=== PATIENT | male | born 1955 | race African-American/Black ===

== ENCOUNTER 2016-08-23 06:06 | Day surgery (SDC) | payer BC ==
[2016-08-20 10:46] LABS: HEMATOCRIT 34.4 % (40.0-51.0); HEMOGLOBIN 11.6 g/dL (13.6-17.8)
[2016-08-20 10:58] LABS: BUN (BLOOD UREA NITROGEN) 11 MG/DL (6-23); CALCIUM, SERUM 8.8 MG/DL (8.5-10.4); CHLORIDE, SERUM 105 MMOL/L (96-112); CO2 (CARBON DIOXIDE) 28 MMOL/L (24-34); CREATININE 0.86 MG/DL (0.70-1.30); GFR AFRICAN AMERICAN 110 ML/MIN (>=60); GFR NON AFRICAN AMERICAN 95 ML/MIN (>=60); GLUCOSE, SERUM 129 MG/DL (60-99); POTASSIUM, SERUM 3.6 MMOL/L (3.5-5.3); SODIUM, SERUM 139 MMOL/L (135-148)
--- NOTE | ~2016-08-23 | OP ---
Record Of Operation [place] [id number] [facility] [place]. [address] NAME: LISSET RUIZ : 57 STATUS : [facility] [place] PAT#: [id number] AGE: 60 ADM/REG DATE : 08/23/16 MR#: [id number] REPORT SERV DATE: 08/23/16 DICTATED BY: ARLEEN ARREOLA DATE: 08/23/16 REPORT STATUS : Draft TRANSCRIBED BY: [email or web address] DATE: 08/23/16 DATE OF PROCEDURE: 08/23/2016 PREOPERATIVE DIAGNOSES: 1. Mild obstructive sleep apnea syndrome. 2. Severe tonsillar hypertrophy. 3. Uvular redundancy. 4. Bilateral inferior turbinate hypertrophy. 5. Chronic nasal obstruction. POSTOPERATIVE DIAGNOSES: 1. Mild obstructive sleep apnea syndrome. 2. Severe tonsillar hypertrophy. 3. Uvular redundancy. 4. Bilateral inferior turbinate hypertrophy. 5. Chronic nasal obstruction. PROCEDURES: 1. Uvulopalatopharyngoplasty. 2. Tonsillectomy. 3. Bilateral inferior turbinoplasty. ANESTHESIA: General. COMPLICATIONS: None. COUNTS: All counts were correct following the procedure. ESTIMATED BLOOD LOSS: 15 mL. PREOPERATIVE INFORMED CONSENT: We discussed the risks and benefits of the surgery to include, but limited to bleeding, infection, possible persistent nasal obstruction despite surgery, possible uvulopalatal incompetence, possible postoperative taste distortion, possible persistent obstructive sleep apnea syndrome requiring for the CPAP versus more advanced sleep surgery. He understands the risk and benefits of the surgery, and consent is on the chart. DESCRIPTION OF PROCEDURE: The patient was brought to the operative suite and placed on the operating table in the supine position. General endotracheal anesthesia was initiated without incident using the laser endotracheal tube. The patient's head and neck was cleaned, prepped and draped in the usual sterile fashion. Following this, moistened eye pads were placed on the patient's eyes. Attention was then taken to the oral cavity. A Zak-Lucas retractor was carefully inserted in the oral cavity and used to retract the tongue anteriorly and inferiorly in order to visualize the oropharynx. The soft palate, uvula, and anterior tonsillar pillars were Record Of Operation [place] [address] [place]. [address] NAME: LISSET RUIZ : 57 STATUS : REG [facility]#: [id number] AGE: 60 ADM/REG DATE : 08/23/16 MR#: [id number] REPORT SERV DATE: 08/23/16 DICTATED BY: ARLEEN ARREOLA DATE: 08/23/16 REPORT STATUS : Draft TRANSCRIBED BY: LUÍS DATE: 08/23/16 injected with 1% Lidocaine with 1:100,000 epinephrine for hemostasis. Approximately 6.0 mL was used. Following this a # 12-blade scalpel was used to make an incision down both anterior tonsillar pillars then across the palate to the level of the base of the uvula. The right superior pole of the tonsil was grasped using the tonsillar tenaculum and retracted medially. Using electrocautery, the tonsil was dissected off the underlying pharyngeal musculature down to the inferior pole where it was transected and sent for permanent pathology. There was minimal bleeding. A similar procedure was then carried out on the left tonsil as on the right. Again, there was minimal bleeding. The specimens were sent for permanent pathology. Suction cautery was then obtained. Using a Herd dissector, meticulous hemostasis was achieved in both tonsillar fossae. Then curved Metzenbaum scissors were used to transect the uvula at its base preserving the posterior mucosa. The mucosal flaps were advanced and closed using interrupted 3-0 Vicryl sutures. The oral cavity was irrigated with sterile saline and suctioned until clear. Attention was then taken to the nose and both sides of the septum, as well as the inferior turbinates were injected with 1% Lidocaine with 1:100,000 epinephrine for hemostasis. Approximately 12.0 mL was used. Following this, a #15-blade scalpel was used to perform a left hemitransfixion incision down to the underlying septal cartilage. The mucoperichondrial flap was raised along the left side of the septum using a [place] and Cynthia elevators. The mucoperiosteum was raised off of the maxillary crest using a Cox elevator. A thin strip of cartilaginous septum along the maxillary crest was removed using the Cynthia elevator and the bony cartilaginous junction was using the Cynthia elevator. The mucoperiosteum was raised on both sides of the bony nasal septum. The deviated bony nasal septum was taken down using open Surya-Trell forceps and Mateo forceps. The deviated maxillary crest was also removed using Mateo forceps. This allowed the cartilaginous septum to swing back into the midline. The left hemitransfixion incision was then closed using interrupted 4-0 Chromic sutures and attention was then taken to the turbinates. Both inferior turbinates underwent submucous resection using the Xomed turbinates shaver in a systematic fashion. Both inferior turbinates were infractured and both the medial and lateral surfaces were cauterized using the harmonic scalpel. Both inferior turbinates were outfractured. Breathe-Easy septal splints were placed on both sides of the nasal septum and sutured in the midline using 2-0 Nylon suture. Following this, a bite guard was placed on the upper teeth and a laser Dedo laryngoscope was carefully inserted in the oral cavity and advanced down the midline tongue down to the vallecula region. The patient was then suspended from the León stand. Moistened towels were placed on the patient's face. The microscope was brought into the field and using the CO2 laser attachment with the micromanipulator attachment set at 7 villalba, 200-millijoules, an inverted V-shaped area of the lingual tonsil tissue and base of tongue were systematically vaporized, enlarging the base of tongue airway. Once adequate tissue had been removed, any bleeding sites were cauterized using laryngeal suction cautery. The patient was then taken out of suspension and the Dedo laryngoscope was removed. The patient was awaken from anesthesia and taken to the recovery room in stable condition. Record Of Operation [address] [address] NAME: LISSET RUIZ : 57 STATUS : [facility] [place] PAT#: [id number] AGE: 60 ADM/REG DATE : 08/23/16 MR#: [id number] REPORT SERV DATE: 08/23/16 DICTATED BY: ARLEEN ARREOLA DATE: 08/23/16 REPORT STATUS : Draft TRANSCRIBED BY: LUÍS DATE: 08/23/16 KATHERINE/LUÍS Arleen Arreola M.D. / [id number] CC: Johnathan Church MD
[~2016-08-23 06:06] MED LIST: 8 HOUR650 MG PO; APIDRA SC; ASAB PO; GLUCPH PO; HALF81 PO; LACT30UDL PO; LEVAQUIN750 MG PO; LEVEMFLXPN SC; LEVEMIR SC; LEVITRA20 MG PO; LIPITOR40 PO; LORTAB10 PO; MAGOX4 PO; NORCO1 TAB PO; NOVOPEN SC; P20 PO; PRILO PO; PRIN20 PO; PROAIR HFA INH; SINGULAIR1 PO; SMZ/TMP DS; SYMBICORT 160/41 INH INH; THERAFLU CL1 PO; ZANTAC300 MG PO; ZITH250 PO; ZOCOR40 PO
== END 2016-08-23 23:59 | disposition home or self-care (01) ==
LOC: MSC 06:06
PROVIDERS: Otolaryngology
PROC: 09BL7ZZ Excision of Nasal Turbinate, Via Natural or Artificial Opening (ICD-10-PCS; 2016-08-23)
PROC: 0C5PXZZ Destruction of Tonsils, External Approach (ICD-10-PCS; principal; 2016-08-23 07:30)
PROC: 0C5 Mouth and Throat, Destruction (ICD-10-PCS; 2016-08-23 07:30)
PROC: 0C5PXZZ Destruction of Tonsils, External Approach (ICD-10-PCS; 2016-08-23 07:30)
DX: J35.1 Hypertrophy of tonsils (principal); A42.89 Other forms of actinomycosis; J34.3 Hypertrophy of nasal turbinates; J34.89 Other specified disorders of nose and nasal sinuses; Q38.5 Congenital malformations of palate, not elsewhere classified; G47.33 Obstructive sleep apnea (adult) (pediatric); I10 Essential (primary) hypertension; I69.354 Hemiplegia and hemiparesis following cerebral infarction affecting left non-dominant side; E11.9 Type 2 diabetes mellitus without complications; E78.5 Hyperlipidemia, unspecified; E78.00 Pure hypercholesterolemia, unspecified; E07.9 Disorder of thyroid, unspecified; N20.0 Calculus of kidney; M19.90 Unspecified osteoarthritis, unspecified site; K21.9 Gastro-esophageal reflux disease without esophagitis; D64.9 Anemia, unspecified; Z83.3 Family history of diabetes mellitus; Z82.5 Family history of asthma and other chronic lower respiratory diseases; J44.9 Chronic obstructive pulmonary disease, unspecified; Z99.89 Dependence on other enabling machines and devices; Z79.82 Long term (current) use of aspirin; Z79.4 Long term (current) use of insulin; Z79.84 Long term (current) use of oral hypoglycemic drugs; Z79.899 Other long term (current) drug therapy; Z09 Encounter for follow-up examination after completed treatment for conditions other than malignant neoplasm; Z87.09 Personal history of other diseases of the respiratory system; Z87.81 Personal history of (healed) traumatic fracture; Z86.010 Personal history of colon polyps; Z98.890 Other specified postprocedural states
CPT/HCPCS: 80048; 82962; 85014; 85018; 88302; 88304; 93005; A9270-GY; J0360; J0690; J2250; J2270; J2405; J2710; J3010